=== PATIENT | male | born 1970 ===

== ENCOUNTER 2022-07-16 11:30 | Emergency (ER) | payer MEDICAID ==
[2022-07-16] MEDS ORDERED: Diphtheria,Pertussis(Acell),Tetanus Vaccine 0.5 ML Syringe IM ONE (11:54)
== END 2022-07-16 13:51 | disposition home or self-care (01) ==
LOC: MW.ED 11:30
DX: S60.414A Abrasion of right ring finger, initial encounter (principal); S40.212A Abrasion of left shoulder, initial encounter; Z23 Encounter for immunization; W01.198A Fall on same level from slipping, tripping and stumbling with subsequent striking against other object, initial encounter
CPT/HCPCS: 73030-26-LT; 73030-LT; 73140-26-F8; 73140-F8; 90471; 90715; 99283-25